=== PATIENT | male | born 1970 | race Hispanic/Latino ===

== ENCOUNTER 2019-03-03 21:20 | Emergency (ER) | payer OTHER ==
[~2019-03-03] VITALS: Ht 185.4 cm; Wt 111.1 kg
--- OUTSIDE RECORDS SUMMARY | 2019-03-03 21:22 | XMS REPORT | Clinical Summary ---
Author Author MICHAELLE Frio DistributorsMadison Memorial HospitalTugendeSummit Pacific Medical Center Organization [facility] Address Unknown Phone Unavailable Care Team Providers Care Real Estate Closing Coordinator Name Role Phone Giselle Boyle MD PCP Allergies No Known Allergies Medications End Date Status Medication Sig Dispensed Refills Start Date Active acetaminophen-codeine Take 2 0 (TYLENOL #3) 300-30 mg tablets by per tablet mouth every 6 (six) hours as needed for Pain. Active dextroamphetamine-ampheta Take 20 mg by 0 mine (ADDERALL) 20 mg Tab mouth. tablet Active atenolol (TENORMIN) 25 MG Take 25 mg by 0 tablet mouth daily. Active FLUoxetine (PROZAC) 40 MG Take 40 mg by 0 capsule mouth daily. Active gabapentin (NEURONTIN) Take 100 mg 0 100 MG capsule by mouth 2 (two) times daily. Active ibuprofen (ADVIL,MOTRIN) Take 200 mg 0 200 MG tablet by mouth every 6 (six) hours as needed for Pain. Active insulin glargine (LANTUS) Inject 30 0 100 unit/mL injection Units subcutaneousl y 2 (two) times daily Use as directed . Active insulin lispro (HUMALOG) Inject 20 0 100 unit/mL injection Units subcutaneousl y 3 (three) times daily before meals. Active liraglutide 0.6 mg/0.1 mL Inject 1.8 mg 0 (18 mg/3 mL) PnIj subcutaneousl y daily Daily before supper . Active montelukast (SINGULAIR) Take 10 mg by 0 10 mg tablet mouth nightly. Active simvastatin (ZOCOR) 10 MG Take 10 mg by 0 tablet mouth nightly. Active tadalafil (CIALIS) 10 MG Take 10 mg by 0 tablet mouth daily as needed for Erectile Dysfunction. 05/14/2018 Discontinued clindamycin (CLEOCIN) 300 Take 300 mg 0 MG capsule by mouth 3 (three) times daily. 05/21/2018 clindamycin (CLEOCIN) 300 Take 1 21 capsule 0 05/14/201 MG capsule capsule (300 8 mg total) by mouth 3 (three) times daily for 7 days. Active Problems Problem Noted Date Abscess of left foot 05/12/2018 Type 2 diabetes mellitus with foot ulcer 05/11/2018 PAD (peripheral artery disease) 05/11/2018 Hypertension 05/11/2018 Diabetes mellitus with foot ulcer 05/11/2018 Encounters Care Team Description Date Type Specialty 05/13/2018 Travel Champ Garcia MD AMPUTATION,TOE 05/12/2018 Surgery Jesse Mckeon MD 05/12/2018 Anesthesia Event Kenton Irizarry, Tahir Guzman MD Wellinghoff, Vanessa Thea, MD 05/11/2018 [facility] General Internal Medicine - Encounter 05/14/2018 after 03/02/2018 Family History Medical History Relation Name Comments Diabetes Mother Relation Name Status Comments Mother Social History Date Tobacco Use Types Packs/Day Years Used Quit: 2008 Former Smoker Smokeless Tobacco: Never Used Alcohol Use Drinks/Week oz/Week Comments No Sex Assigned at Date Recorded Not on file Industry Job Start Date Occupation Not on file Not on file Not on file Travel End Travel History Travel Start No recent travel history available. Last Filed Vital Signs Time Taken Vital Sign Reading 05/14/2018 11:00 AM CDT Blood Pressure 138/69 05/14/2018 11:00 AM CDT Pulse 78 05/14/2018 11:00 AM CDT Temperature 36.1 C (96.9 F) 05/14/2018 11:00 AM CDT Respiratory Rate 18 05/14/2018 11:00 AM CDT Oxygen Saturation 97% - Inhaled Oxygen - Concentration 05/11/2018 8:00 PM CDT Weight 115 kg (253 lb 9.6 oz) 05/11/2018 8:00 PM CDT Height 185.4 cm (6' 1") 05/11/2018 8:00 PM CDT Body Mass Index 33.46 Plan of Treatment Not on file Procedures Comments Procedure Name Priority Date/Time Associated Diagnosis POCT-GLUCOSE METER Routine 05/14/2018 12:25 PM CDT POCT-GLUCOSE METER Routine 05/14/2018 8:41 AM CDT CBC W/PLT COUNT & AUTO Routine 05/14/2018 DIFFERENTIAL 5:34 AM CDT VANCOMYCIN LEVEL, TROUGH Timed 05/14/2018 5:34 AM CDT BASIC METABOLIC PANEL (7) Routine 05/14/2018 5:34 AM CDT CBC W/PLT COUNT & AUTO Routine 05/14/2018 DIFFERENTIAL 5:34 AM CDT POCT-GLUCOSE METER Routine 05/13/2018 8:50 PM CDT POCT-GLUCOSE METER Routine 05/13/2018 4:23 PM CDT POCT-GLUCOSE METER Routine 05/13/2018 12:29 PM CDT POCT-GLUCOSE METER Routine 05/13/2018 8:46 AM CDT CBC W/PLT COUNT & AUTO Routine 05/13/2018 DIFFERENTIAL 7:03 AM CDT BASIC METABOLIC PANEL (7) Routine 05/13/2018 7:03 AM CDT CBC W/PLT COUNT & AUTO Routine 05/13/2018 DIFFERENTIAL 7:03 AM CDT POCT-GLUCOSE METER Routine 05/12/2018 8:54 PM CDT AMPUTATION,TOE 05/12/2018 Abscess of left foot 12:30 PM CDT Case Notes 1 HRPT TO BE ADMITTED TODAY Special Needs (REQUEST 10:00 AM) POCT-GLUCOSE METER Routine 05/12/2018 12:09 PM CDT TISSUE EXAM AP Routine 05/12/2018 11:17 AM CDT POCT-GLUCOSE METER Routine 05/12/2018 10:50 AM CDT CBC W/PLT COUNT & AUTO Routine 05/11/2018 DIFFERENTIAL 9:48 PM CDT CBC W/PLT COUNT & AUTO Routine 05/11/2018 DIFFERENTIAL 9:48 PM CDT PT/APTT Routine 05/11/2018 9:48 PM CDT BASIC METABOLIC PANEL (7) Routine 05/11/2018 9:48 PM CDT POCT-GLUCOSE METER Routine 05/11/2018 9:12 PM CDT after 03/02/2018 Results * POC-Glucose meter (05/14/2018 12:25 PM CDT) Only the most recent of 10 results within the time period is included. POC-Glucose Meter 268 (H)Comment: TESTED AT 70 - 110 mg/dL [address] [address] Specimen Blood Performing Organization Address City/State/Zipcode Phone Number [address] [phone] [facility] * CBC with platelet count + automated diff (05/14/2018 5:34 AM CDT) Only the most recent of 3 results within the time period is included. WBC 6.8 3.5 - 10.5 K/L [facility] RBC 4.20 (L) 4.63 - 6.08 M/L [facility] Hemoglobin 11.6 (L) 13.7 - 17.5 GM/DL [facility] Hematocrit 35.7 (L) 40.1 - 51.0 % [facility] MCV 85.0 79.0 - 92.2 fL [facility] MCH 27.6 25.7 - 32.2 pg [facility] MCHC 32.5 32.3 - 36.5 GM/DL [facility] RDW 12.9 11.6 - 14.4 % [facility] Platelets 346 150 - 450 K/CU MM [facility] MPV 8.7 (L) 9.4 - 12.4 fL [facility] nRBC 0 0 - 0 /100 WBC [facility] % Neutros 59 % [facility] % Lymphs 25 % [facility] % Monos 11 % [facility] % Eos 3 % [facility] % Baso 1 % [facility] # Neutros 4.02 1.78 - 5.38 K/L [facility] # Lymphs 1.70 1.32 - 3.57 K/L [facility] # Monos 0.76 0.30 - 0.82 K/L [facility] # Eos 0.22 0.04 - 0.54 K/L [facility] # Baso 0.05 0.01 - 0.08 K/L [facility] Immature 1 0 - 1 % [facility] Granulocytes-[facility] Specimen Blood Performing Organization Address City/State/[place] [address] [phone] [place] [address] * Vancomycin level, trough (05/14/2018 5:34 AM CDT) Vancomycin Tr 8.4 (L) 10.0 - 20.0 ug/mL [facility] Specimen Blood Performing Organization Address City/[facility]/[place] [address] [facility] * Basic metabolic panel (05/14/2018 5:34 AM CDT) Only the most recent of 3 results within the time period is included. Sodium 140 136 - 145 meq/L [facility] Potassium 3.8 3.5 - 5.1 meq/L [facility] Chloride 107 98 - 107 meq/L [facility] CO2 25 22 - 29 meq/L [facility] BUN 12 7 - 21 mg/dL [facility] Creatinine 0.82 0.57 - 1.25 mg/dL [facility] Glucose 123 (H) 70 - 105 mg/dL [facility] Calcium 8.7 8.4 - 10.2 mg/dL [facility] EGFR 101Comment: ESTIMATED GFR IS mL/min/1.73 sq m [facility] NOT ACCURATE CREATININE [facility] CLEARANCE IN PREDICTING GLOMERULAR FILTRATION RATE. ESTIMATED GFR IS NOT APPLICABLE FOR DIALYSIS PATIENTS. Specimen Blood Performing Organization Address City/State/Zipcode Phone Number [facility] [address] [place] [address] [facility] * Tissue Exam (05/12/2018 11:17 AM CDT) Case Report Surgical Pathology [facility] Case: [id number] Authorizing Provider:Champ Garcia, Collected: 05/12/2018 111Tao LYNN Ordering Location: [facility] PERIOPERATIVE Received: 05/12/2018 1224 SERVICES Pathologist: Linus Kim MD Specimen:Toe, Left, 5th RAY DIGIT AND METATARSAL, LEFT FOOT DIAGNOSIS A. 5TH TOE, LEFT, AMPUTATION: [facility] GANGRENOUS NECROSIS OF SKIN [facility] AND SOFT TISSUE. UNDERLYING ACUTE AND CHRONIC OSTEOMYELITIS. SOFT TISSUE AND BONE MARGINS VIABLE. Signing Pathologist Direct Phone Line: [phone] CPT Code(s) 51936, 21637 [facility] CLINICAL HISTORY Abscess of left foot [facility] SPECIMEN SOURCE Fifth ray digit left foot [facility] GROSS DESCRIPTION The specimen is received in a [facility] fluidless container labeled [facility] with the patient's information and labeled "left toe fifth ray digit" and consists of an amputated toe measuring 7 x 3 x 2 cm. The lateral side of the skin has an ulceration measuring 1 cm in greatest dimension located 1 cm from the skin margin. There is also a second area of ulceration on the plantar surface of the toe measuring 1 cm in greatest dimension located at least 0.5 cm from the skin margin. Section code: A1, skin margin en face; A2, bone margin submitted for decalcification; A3, A4, cross section of area of ulceration and underlying bone submitted for decalcification. CG/ew MICROSCOPIC DESCRIPTION PERFORMED. [facility] Gross assessment was [facility] performed at [place], Department [facility], [address] [place] [address], Technical component was [facility] performed at [place], Department of [facility] Pathology, [address] [place] [address], Professional component [facility] was performed at [place], Department of [facility] Pathology, [address] [place] [address], Specimen Tissue Performing Organization Address City/[facility] Cent[facility] Phone Number [address] [address] [facility] * PT/aPTT (05/11/2018 9:48 PM CDT) Protime 13.5 11.7 - 14.7 seconds [facility] INR 1.0 <=5.9 [facility] PTT 35.4 22.5 - 36.0 seconds [facility] Specimen Blood Narrative Performed At RECOMMENDED COUMADIN/WARFARIN INR THERAPY RANGES [facility] STANDARD DOSE: 2.0 - 3.0 Includes: PROPHYLAXIS for venous thrombosis, [facility] systemic embolization; TREATMENT for venous thrombosis and/or pulmonary embolus. HIGH RISK: Target INR is 2.5-3.5 for patients with mechanical heart valves. Performing Organization Address City/[facility] Cent[facility]ode Phone Number [address] [place] [address] MEDICAL CENTER after 03/02/2018 Insurance Payer Benefit Subscriber ID Type Phone Address Plan / Group [employer] - MGD CARE CIG[employer] xxxxxxxxxxx HMO/POS [employer] Advance Directives For more information, please contact: [address] [phone] Date Inactivated Comments Code Status Date Activated 05/14/2018 5:38 PM Full Code 05/11/2018 8:57 PM This code status was determined by: Patient
--- OUTSIDE RECORDS SUMMARY | 2019-03-03 21:23 | XMS REPORT ---
Author Author [facility] Address Unknown Phone Unavailable Care Team Providers Care Sanitarian Aide Name Role Phone Vincent COOLEY Unavailable Unavailable Problems This patient has no known problems. Allergies, Adverse Reactions, Alerts This patient has no known allergies or adverse reactions. Medications This patient has no known medications. Results Test Description Test Time Test Comments Text Results Atomic Results Result Comments TISSUE EXAM 2018-05-16 13:40:00 Surgical Pathology Report Case: [id number] Authorizing Provider: Champ Garcia, Collected: 05/12/2018 1117 MD Ordering Location: [facility] PERIOPERATIVE Received: 05/12/2018 1224 SERVICES Pathologist: Linus Kim MD Specimen: Toe, Left, 5th RAY DIGIT AND METATARSAL, LEFT FOOT A. 5TH TOE, LEFT, AMPUTATION:GANGRENOUS NECROSIS OF SKIN AND SOFT TISSUE.UNDERLYING ACUTE AND CHRONIC OSTEOMYELITIS.SOFT TISSUE AND BONE MARGINS VIABLE. Signing Pathologist Direct Phone Line: [phone] signed by Linus Kim MD on 05/16/2018 at 1:40 [id number], [id number] of left foot Fifth ray digit left foot The specimen is received in a fluidless container labeled with the patient's information and labeled "left [...] at least 0.5 cm from the skin margin.Section code: A1, skin margin en face; A2, bone margin submitted for decalcification; A3, A4, cross section of area of ulceration and underlying bone submitted for decalcification. CG/ew PERFORMED. [facility], Department of Pathology, [address] [place] [address], [place] [address], [facility], Department of Pathology, [address] [place] [address], [facility], [facility] of [facility], [address] [place] [address], POCT-GLUCOSE METER 2018-05-14 12:27:00 POC-GLUCOSE METER (BEAKER) (test bfwo=8590) 268 mg/dL 70-110 [address]ED AT [address] [address] POCT-GLUCOSE [id number] 08:42:00* Test Item Value Reference Range Comments POC-GLUCOSE METER (BEAKER) (test dajx=0434) 137 mg/dL 70-110 TESTED AT [address] [address] VANCOMYCIN LEVEL, [id number] 08:26:00* Test Item Value Reference Range Comments VANCOMYCIN TROUGH (BEAKER) (test fhif=321) 8.4 ug/mL 10.0-20.0 BASIC METABOLIC [id number] 08:24:00* Test Item Value Reference Range Comments SODIUM (BEAKER) (test bwxk=680) 140 meq/L 136-145 POTASSIUM (BEAKER) (test fbkp=635) 3.8 meq/L 3.5-5.1 CHLORIDE (BEAKER) (test kaky=085) 107 meq/L 98-107 CO2 (BEAKER) (test euur=473) 25 meq/L 22-29 BLOOD UREA NITROGEN (BEAKER) (test jomr=779) 12 mg/dL 7-21 CREATININE (BEAKER) (test bohz=766) 0.82 mg/dL 0.57-1.25 GLUCOSE RANDOM (BEAKER) (test vqie=443) 123 mg/dL 70-105 CALCIUM (BEAKER) (test arif=635) 8.7 mg/dL 8.4-10.2 EGFR (BEAKER) (test sehh=8259) 101 mL/min/1.73 sq m ESTIMATED GFR IS NOT ACCURATE CREATININE CLEARANCE IN PREDICTING GLOMERULAR FILTRATION RATE. ESTIMATED GFR IS NOT APPLICABLE FOR DIALYSIS PATIENTS. CBC W/PLT COUNT & AUTO [id number] 07:43:00* Test Item Value Reference Range Comments WHITE BLOOD CELL COUNT (BEAKER) (test iufa=292) 6.8 K/ L 3.5-10.5 RED BLOOD CELL COUNT (BEAKER) (test vrmd=373) 4.20 M/ L 4.63-6.08 HEMOGLOBIN (BEAKER) (test nvfr=709) 11.6 GM/DL 13.7-17.5 HEMATOCRIT (BEAKER) (test edam=988) 35.7 % 40.1-51.0 MEAN CORPUSCULAR VOLUME (BEAKER) (test tche=905) 85.0 fL 79.0-92.2 MEAN CORPUSCULAR HEMOGLOBIN (BEAKER) (test eved=960) 27.6 pg 25.7-32.2 MEAN CORPUSCULAR HEMOGLOBIN CONC (BEAKER) (test psiq=690) 32.5 GM/DL 32.3-36.5 RED CELL DISTRIBUTION WIDTH (BEAKER) (test auxs=123) 12.9 % 11.6-14.4 PLATELET COUNT (BEAKER) (test nfmm=714) 346 K/CU MM 150-450 MEAN PLATELET VOLUME (BEAKER) (test sbkh=694) 8.7 fL 9.4-12.4 NUCLEATED RED BLOOD CELLS (BEAKER) (test jjih=721) 0 /100 WBC 0-0 NEUTROPHILS RELATIVE PERCENT (BEAKER) (test bnmf=367) 59 % LYMPHOCYTES RELATIVE PERCENT (BEAKER) (test flcn=837) 25 % MONOCYTES RELATIVE PERCENT (BEAKER) (test drpt=892) 11 % EOSINOPHILS RELATIVE PERCENT (BEAKER) (test gasi=350) 3 % BASOPHILS RELATIVE PERCENT (BEAKER) (test bhto=248) 1 % NEUTROPHILS ABSOLUTE COUNT (BEAKER) (test xjti=322) 4.02 K/ L 1.78-5.38 LYMPHOCYTES ABSOLUTE COUNT (BEAKER) (test egna=198) 1.70 K/ L 1.32-3.57 MONOCYTES ABSOLUTE COUNT (BEAKER) (test ejak=870) 0.76 K/ L 0.30-0.82 EOSINOPHILS ABSOLUTE COUNT (BEAKER) (test tjtt=542) 0.22 K/ L 0.04-0.54 BASOPHILS ABSOLUTE COUNT (BEAKER) (test vcwy=019) 0.05 K/ L 0.01-0.08 IMMATURE GRANULOCYTES-RELATIVE PERCENT (BEAKER) (test wcgn=0777) 1 % 0-1 POCT-GLUCOSE [id number] 21:41:00* Test Item Value Reference Range Comments POC-GLUCOSE METER (BEAKER) (test hogu=5885) 220 mg/dL 70-110 TESTED AT [place] [id number] [facility] [address] POCT-GLUCOSE [id number] 17:16:00* Test Item Value Reference Range Comments POC-GLUCOSE METER (BEAKER) (test tgpg=7005) 204 mg/dL 70-110 TESTED AT [address] [address] POCT-GLUCOSE [id number] 12:33:00* Test Item Value Reference Range Comments POC-GLUCOSE METER (BEAKER) (test uvcd=1107) 286 mg/dL 70-110 TESTED AT [address] [address] POCT-GLUCOSE [id number] 08:48:00* Test Item Value Reference Range Comments POC-GLUCOSE METER (BEAKER) (test ayxe=3282) 229 mg/dL 70-110 TESTED AT [address] [address] BASIC METABOLIC [id number] 07:35:00* Test Item Value Reference Range Comments SODIUM (BEAKER) (test tace=449) 136 meq/L 136-145 POTASSIUM (BEAKER) (test oant=084) 4.1 meq/L 3.5-5.1 CHLORIDE (BEAKER) (test qtbz=248) 106 meq/L 98-107 CO2 (BEAKER) (test rjfo=087) 26 meq/L 22-29 BLOOD UREA NITROGEN (BEAKER) (test ofva=631) 15 mg/dL 7-21 CREATININE (BEAKER) (test icwa=609) 0.89 mg/dL 0.57-1.25 GLUCOSE RANDOM (BEAKER) (test chni=286) 253 mg/dL 70-105 CALCIUM (BEAKER) (test jpyw=091) 8.2 mg/dL 8.4-10.2 EGFR (BEAKER) (test lwxe=0266) 92 mL/min/1.73 sq m ESTIMATED GFR IS NOT ACCURATE CREATININE CLEARANCE IN PREDICTING GLOMERULAR FILTRATION RATE. ESTIMATED GFR IS NOT APPLICABLE FOR DIALYSIS PATIENTS. CBC W/PLT COUNT & AUTO [id number] 07:14:00* Test Item Value Reference Range Comments WHITE BLOOD CELL COUNT (BEAKER) (test qxvf=065) 6.7 K/ L 3.5-10.5 RED BLOOD CELL COUNT (BEAKER) (test ykwj=021) 4.16 M/ L 4.63-6.08 HEMOGLOBIN (BEAKER) (test ccew=690) 11.0 GM/DL 13.7-17.5 HEMATOCRIT (BEAKER) (test lvap=282) 34.7 % 40.1-51.0 MEAN CORPUSCULAR VOLUME (BEAKER) (test dgps=562) 83.4 fL 79.0-92.2 MEAN CORPUSCULAR HEMOGLOBIN (BEAKER) (test umxa=592) 26.4 pg 25.7-32.2 MEAN CORPUSCULAR HEMOGLOBIN CONC (BEAKER) (test bdgl=417) 31.7 GM/DL 32.3-36.5 RED CELL DISTRIBUTION WIDTH (BEAKER) (test wybi=556) 12.7 % 11.6-14.4 PLATELET COUNT (BEAKER) (test chyv=121) 273 K/CU MM 150-450 MEAN PLATELET VOLUME (BEAKER) (test fych=366) 8.3 fL 9.4-12.4 NUCLEATED RED BLOOD CELLS (BEAKER) (test ccyg=225) 0 /100 WBC 0-0 NEUTROPHILS RELATIVE PERCENT (BEAKER) (test hxab=884) 61 % LYMPHOCYTES RELATIVE PERCENT (BEAKER) (test xmkl=721) 23 % MONOCYTES RELATIVE PERCENT (BEAKER) (test bvra=605) 11 % EOSINOPHILS RELATIVE PERCENT (BEAKER) (test jcft=329) 3 % BASOPHILS RELATIVE PERCENT (BEAKER) (test btti=893) 1 % NEUTROPHILS ABSOLUTE COUNT (BEAKER) (test edzp=412) 4.14 K/ L 1.78-5.38 LYMPHOCYTES ABSOLUTE COUNT (BEAKER) (test dely=109) 1.55 K/ L 1.32-3.57 MONOCYTES ABSOLUTE COUNT (BEAKER) (test vzqz=120) 0.76 K/ L 0.30-0.82 EOSINOPHILS ABSOLUTE COUNT (BEAKER) (test bxtx=215) 0.18 K/ L 0.04-0.54 BASOPHILS ABSOLUTE COUNT (BEAKER) (test diap=722) 0.04 K/ L 0.01-0.08 IMMATURE GRANULOCYTES-RELATIVE PERCENT (BEAKER) (test cqpk=7958) 1 % 0-1 POCT-GLUCOSE [id number] 21:03:00* Test Item Value Reference Range Comments POC-GLUCOSE METER (BEAKER) (test lqki=9509) 105 mg/dL 70-110 TESTED AT [facility] [address] [facility] [address] POCT-GLUCOSE [id number] 12:12:00* Test Item Value Reference Range Comments POC-GLUCOSE METER (BEAKER) (test lsao=2300) 146 mg/dL 70-110 [address]ED AT [address] [address] POCT-GLUCOSE [id number] 10:56:00* Test Item Value Reference Range Comments POC-GLUCOSE METER (BEAKER) (test zjdg=9735) 164 mg/dL 70-110 TESTED AT [address] [address] BASIC METABOLIC [id number] 22:38:00* Test Item Value Reference Range Comments SODIUM (BEAKER) (test lgee=714) 133 meq/L 136-145 POTASSIUM (BEAKER) (test qpsf=811) 4.8 meq/L 3.5-5.1 Specimen moderately hemolyzed CHLORIDE (BEAKER) (test fmiw=161) 100 meq/L 98-107 CO2 (BEAKER) (test rqia=606) 26 meq/L 22-29 BLOOD UREA NITROGEN (BEAKER) (test zpkx=865) 17 mg/dL 7-21 CREATININE (BEAKER) (test cvpa=357) 0.93 mg/dL 0.57-1.25 Specimen moderately hemolyzed GLUCOSE RANDOM (BEAKER) (test zhks=333) 190 mg/dL 70-105 CALCIUM (BEAKER) (test viyp=802) 8.8 mg/dL 8.4-10.2 EGFR (BEAKER) (test zzza=5157) 87 mL/min/1.73 sq m ESTIMATED GFR IS NOT ACCURATE CREATININE CLEARANCE IN PREDICTING GLOMERULAR FILTRATION RATE. ESTIMATED GFR IS NOT APPLICABLE FOR DIALYSIS PATIENTS. [id number] 22:37:00* Test Item Value Reference Range Comments PROTIME (BEAKER) (test sqgg=111) 13.5 seconds 11.7-14.7 INR (BEAKER) (test tfot=918) 1.0 <=5.9 PARTIAL THROMBOPLASTIN TIME (BEAKER) (test otqr=066) 35.4 seconds 22.5-36.0 RECOMMENDED COUMADIN/WARFARIN INR THERAPY RANGESSTANDARD DOSE: 2.0 - 3.0 Inclu leslie: PROPHYLAXIS for venous thrombosis, systemic embolization; TREATMENT for vira ous thrombosis and/or pulmonary embolus.HIGH RISK: Target INR is 2.5-3.5 for pat ients with mechanical heart valves.CBC W/PLT COUNT & AUTO [id number] 22:20:00* Test Item Value Reference Range Comments WHITE BLOOD CELL COUNT (BEAKER) (test rfra=982) 6.8 K/ L 3.5-10.5 RED BLOOD CELL COUNT (BEAKER) (test wbfn=563) 4.55 M/ L 4.63-6.08 HEMOGLOBIN (BEAKER) (test tvsv=552) 12.5 GM/DL 13.7-17.5 HEMATOCRIT (BEAKER) (test dwrl=317) 38.4 % 40.1-51.0 MEAN CORPUSCULAR VOLUME (BEAKER) (test fypb=137) 84.4 fL 79.0-92.2 MEAN CORPUSCULAR HEMOGLOBIN (BEAKER) (test trmb=424) 27.5 pg 25.7-32.2 MEAN CORPUSCULAR HEMOGLOBIN CONC (BEAKER) (test xkrh=724) 32.6 GM/DL 32.3-36.5 RED CELL DISTRIBUTION WIDTH (BEAKER) (test tpwd=629) 13.1 % 11.6-14.4 PLATELET COUNT (BEAKER) (test ioaq=036) 317 K/CU MM 150-450 MEAN PLATELET VOLUME (BEAKER) (test irom=340) 8.8 fL 9.4-12.4 NUCLEATED RED BLOOD CELLS (BEAKER) (test juqy=638) 0 /100 WBC 0-0 NEUTROPHILS RELATIVE PERCENT (BEAKER) (test sviv=234) 60 % LYMPHOCYTES RELATIVE PERCENT (BEAKER) (test upus=182) 22 % MONOCYTES RELATIVE PERCENT (BEAKER) (test njny=017) 12 % EOSINOPHILS RELATIVE PERCENT (BEAKER) (test wwtj=889) 4 % BASOPHILS RELATIVE PERCENT (BEAKER) (test rxix=548) 1 % NEUTROPHILS ABSOLUTE COUNT (BEAKER) (test offb=523) 4.11 K/ L 1.78-5.38 LYMPHOCYTES ABSOLUTE COUNT (BEAKER) (test sjra=107) 1.48 K/ L 1.32-3.57 MONOCYTES ABSOLUTE COUNT (BEAKER) (test gkbp=889) 0.83 K/ L 0.30-0.82 EOSINOPHILS ABSOLUTE COUNT (BEAKER) (test zdve=017) 0.25 K/ L 0.04-0.54 BASOPHILS ABSOLUTE COUNT (BEAKER) (test qhuy=971) 0.05 K/ L 0.01-0.08 IMMATURE GRANULOCYTES-RELATIVE PERCENT (BEAKER) (test xplj=9948) 1 % 0-1 POCT-GLUCOSE [id number] 21:20:00* Test Item Value Reference Range Comments POC-GLUCOSE METER (BEAKER) (test vehe=2878) 217 mg/dL 70-110 TESTED AT [facility] [address] [facility] [id number]
== END 2019-03-03 21:54 | disposition home or self-care (01) ==
LOC: FSED 21:20
DX: S80.812A Abrasion, left lower leg, initial encounter (principal); I83.892 Varicose veins of left lower extremity with other complications; W22.8XXA Striking against or struck by other objects, initial encounter; Y92.008 Other place in unspecified non-institutional (private) residence as the place of occurrence of the external cause; E11.319 Type 2 diabetes mellitus with unspecified diabetic retinopathy without macular edema; E11.40 Type 2 diabetes mellitus with diabetic neuropathy, unspecified
CPT/HCPCS: 99283